=== PATIENT | male | born 1985 | race Two or more races ===

== ENCOUNTER 2021-05-12 18:25 | Emergency (ER) | payer OTHER ==
[~2021-05-12] VITALS: Ht 182.9 cm; Wt 108.9 kg
[2021-05-12 20:46] VITALS: BP 150/101
[2021-05-12] MEDS ORDERED: KETOROLAC TROMETH 60MG/2ML VIAL IM ONE (23:30)
[2021-05-12] MEDS ORDERED: IBU600T PO (23:33)
== END 2021-05-13 00:35 | disposition home or self-care (01) ==
LOC: ER 18:25
DX: S52.121A Displaced fracture of head of right radius, initial encounter for closed fracture (principal); W18.39XA Other fall on same level, initial encounter; Y93.89 Activity, other specified; Y92.89 Other specified places as the place of occurrence of the external cause; Y99.0 Civilian activity done for income or pay
CPT/HCPCS: 29105; 73080; 73090; 96372; 99284; J1885